=== PATIENT | female | born 1985 | race American Indian/Alaskan Native ===

== ENCOUNTER 2024-01-20 13:09 | Outpatient (CLI) | payer BC ==
[~2024-01-20] VITALS: Ht 160 cm; Wt 78.2 kg
--- NOTE | 2024-01-20 13:20 | NUR ---
1320Pt to LDR 3 with c/o ctx since last remington at 2100. Last remington, ctx every 10min, today ctx every 30min. Patient changes into clean gown. Denies any LOF, reports normal movement. Reports small "spot" of blood this morning. 1325EFM applied and tracing well. VS obtained. Assessment completed. 1330 SVE /-3, BOWI. 1355Dr. Priddle on unit and updated on pt. See physician notification.
[2024-01-20] MEDS ORDERED: SYNTHROID0.075 MG/T PO (13:52)
[2024-01-20] MEDS ORDERED: GLUCOPHAGE500 MG/TAB PO ×2 (13:53→13:54)
[2024-01-20] MEDS ORDERED: PRENATAL TABLET PO (13:54)
[2024-01-20] MEDS ORDERED: NOVOLIN N100 UNIT/1 SQ ×2 (13:55)
[2024-01-20] MEDS ORDERED: NOVOLOG FLEX100 U/ML SQ (13:57)
[2024-01-20 14:15] VITALS: BP 101/63; PULSE 95; TEMP 99.2
[2024-01-20 14:45] VITALS: BP 111/67; PULSE 86
--- NOTE | 2024-01-20 14:50 | NUR ---
1445- SVE unchanged from previous exam. Pt's states they are happy to be going home. Their concern was that the Pt did not sleep well last night due to occational contractions and they wanted to know what to do so she could sleep. This RN discussed bath/shower, Tylenol for discomfort, Benadryl to help with sleep. Pt and verbalize understanding and denies further questions. 1457- EFM and TOCO off. Pt up to change into street clothes. 1515- Dischage paper work given and explained. Pt denies questions. Pt ambulates off unit with spouse.
== END 2024-01-20 15:15 | disposition home or self-care (01) ==
LOC: LDRO 13:09
DX: O26.893 Other specified pregnancy related conditions, third trimester (principal); O26.853 Spotting complicating pregnancy, third trimester; E75.5 Other lipid storage disorders; Z3A.39 39 weeks gestation of pregnancy

== ENCOUNTER 2024-01-21 09:02 | Inpatient (IN) | payer BC ==
[~2024-01-21] VITALS: Ht 160 cm; Wt 78.6 kg
[2024-01-21] VITALS (41 sets, daily range): BP systolic 80–147; BP diastolic 51–90; PULSE 81–118; TEMP 98.5–99.4
[~2024-01-21 09:02] MED LIST: GLUCOPHAGE500 MG/TAB PO; NOVOLIN N100 UNIT/1 SQ; NOVOLOG FLEX100 U/ML SQ; PRENATAL TABLET PO; SYNTHROID0.075 MG/T PO
--- NOTE | 2024-01-21 09:15 | NUR ---
PT WHEELED TO LABOR RM 3 WITH SPOUSE AT SIDE. PT STATES NO LOF OR VB, DOES SAY SHE FEELS THE BABY MOVING. PT CHANGED INTO CLEAN GOWN AND VOIDED. PLACED ON EFM. SVE AT THIS TIME /3 BALLOTABLE. PT HAS HX OF THROMBOCYTOPENIA AND IS REQUESTING AN EPIDURAL. NOTIFIED PHYSICIAN OF PATIENT'S ARRIVAL AND MEDICAL HISTORY. ADMISSION ORDERS OBTAINED. IV STARTED TO LEFT FOREARM, LABS OBTAINED AND SENT TO LAB. NO OTHER CONCERNS AT THIS TIME.
[2024-01-21] MEDS ORDERED: LR 1,000 ML IV SCH (09:45)
[2024-01-21] MEDS ORDERED: Penicillin G Potassium 5,000,000 UNITS in NS 100 ML IV ONE (09:45)
[2024-01-21] MEDS ORDERED: NS 1,000 ML IV SCH (10:00)
[2024-01-21 10:03] LABS: BASO # 0.1 K/mm3 (0.0-0.2); BASO % 0.3 % (0.0-2.0); EOS % 0.1 % (0.0-4.0); GRAN # 16.9 K/mm3 (1.4-6.5); GRAN % 88.4 % (42.2-75.2); HEMOGLOBIN 11.7 g/dl (12.5-16.0); LYMPH # 1.1 K/mm3 (1.2-3.4); LYMPH % 5.7 % (20.0-51.0); MEAN CELL VOLUME 89 fl (80.0-100.0); MEAN CORPUSCULAR HEMOGLOBIN 29 pg (27-31); MEAN CORPUSCULAR HGB CONC 32 g/dl (33.0-37.0); MEAN PLATELET VOLUME 14.1 fl (7.4-10.4); MONO # 0.9 K/mm3 (0.1-0.6); MONO % 4.6 % (1.7-9.3); PLATELET COUNT 129 K/mm3 (130-400); RED BLOOD COUNT 4.09 M/mm3 (4.10-5.30); REDCELL DISTRIBUTION WIDTH-CV 15.6 % (11.5-14.5)
[2024-01-21 10:08] LABS: HEMATOCRIT 36.4 % (37.0-47.0)
[2024-01-21] MEDS ORDERED: diphenhydrAMINE 25 MG CAP PO PRN (10:15)
[2024-01-21] MEDS ORDERED: Naloxone 0.4 MG/ML VIAL IV PRN ×2 (10:15→17:15)
[2024-01-21] MEDS ORDERED: ePHEDrine 50 MG/10 ML VIAL IV PRN (10:15)
[2024-01-21] MEDS ORDERED: diphenhydrAMINE 50 MG/ML 1 ML VIAL IV PRN (10:15)
[2024-01-21] MEDS ORDERED: Ondansetron 4 MG/2 ML VIAL IV PRN ×2 (10:15→17:15)
[2024-01-21] MEDS ORDERED: ROPivacaine PF 0.2% 200 ML IV ONE (10:17)
[2024-01-21] MEDS ORDERED: D5NS 1,000 ML IV SCH (11:15)
[2024-01-21] MEDS ORDERED: LR & Oxytocin 500 ML IV SCH (13:30)
[2024-01-21] MEDS ORDERED: Penicillin G Potassium 2,500,000 UNITS in NS 100 ML IV SCH (14:00)
[2024-01-21] MEDS ORDERED: Chloroprocaine PF 3% (30 MG/ML) 20 ML VIAL ONE (16:06)
[2024-01-21] MEDS ORDERED: NS 20 ML IV ONE (16:12)
[2024-01-21] MEDS ORDERED: Oxytocin 10 UNITS/ML VIAL ONE ×2 (16:12→16:57)
[2024-01-21] MEDS ORDERED: Ondansetron 4 MG/2 ML VIAL ONE (16:12)
[2024-01-21] MEDS ORDERED: Azithromycin 500 MG in NS 250 ML IV ONE (16:15)
[2024-01-21] MEDS ORDERED: Tranexamic Acid 1,000 MG/10 ML VIAL ONE (16:36)
[2024-01-21] MEDS ORDERED: Meperidine 50 MG/ML 1 ML VIAL ONE (16:39)
[2024-01-21] MEDS ORDERED: LR 1,000 ML IV ONE (16:55)
[2024-01-21] MEDS ORDERED: Phenylephrine 10 MG/ML VIAL ONE (17:03)
[2024-01-21] MEDS ORDERED: LR 1,000 ML IV PRN (17:15)
[2024-01-21] MEDS ORDERED: Measles/Mumps/Rubella Virus Vaccine Live w Diluent 0.5 ML VIAL SQ SCH (17:15)
[2024-01-21] MEDS ORDERED: Acetaminophen 500 MG TAB PO SCH (17:15)
[2024-01-21] MEDS ORDERED: Magnes Hydrox (MOM) 80 MG/ML 30 ML CUP PO PRN (17:15)
[2024-01-21] MEDS ORDERED: oxyCODONE 5 MG TAB PO PRN (17:15)
[2024-01-21] MEDS ORDERED: Loratadine 10 MG TAB PO PRN (17:15)
[2024-01-21] MEDS ORDERED: Ketorolac 60 MG/2 ML VIAL IM ONE (17:19)
--- NOTE | 2024-01-21 17:50 | NUR ---
PT STABLE AND MOVING FROM PACU TO OB RM 211. THE PATIENT STATES THAT SHE HAS MINIMAL PAIN 2/10. IN MOM'S ARMS, BED RAILS UP X2 AND FOB FOLLOWING.
[2024-01-21] MEDS ORDERED: traZODone 50 MG TAB PO PRN (21:00)
[2024-01-21] MEDS ORDERED: Ibuprofen 800 MG TAB PO SCH (23:13)
[2024-01-22 03:07] VITALS: BP 97/56; PULSE 77; TEMP 98.7
--- NOTE | 2024-01-22 03:15 | NUR ---
PT UP WITH ASSISTANCE FOR FIRST TIME AMBULATION SINCE . PT TO BATHROOM. PERICARE GIVEN. ICE TO PERINEUM FOR SWELLING. JOEL DISCONTINUED. PT TOLERATED ACTIVITY WELL. WHEN BACK IN BED, STATES PAIN IS WELL CONTROLLED.
[2024-01-22 07:45] VITALS: BP 115/61; PULSE 78; TEMP 98
--- NOTE | 2024-01-22 07:45 | NUR ---
PT BS 56, ORANGE JUICE PROVIDED, PT DRANK IMMEDIATELY.
[2024-01-22] MEDS ORDERED: Sennosides/Docusate 8.6-50 MG TAB PO SCH (08:00)
[2024-01-22] MEDS ORDERED: Prenatal Vitamins/Iron/FA TAB PO SCH (09:00)
--- NOTE | 2024-01-22 12:31 | NUR ---
Data: Patient declined Spiritual Care visit offered during [employer] Supervisor rounds. Assessment: None. Patient declined. Plan of Care: Chaplains will remain available if requested while Patient is admitted to this hospital.
[2024-01-22 17:50] VITALS: BP 118/69; PULSE 79; TEMP 98.1
[2024-01-22 19:00] VITALS: BP 115/58; PULSE 80; TEMP 98.2
[2024-01-23 07:00] VITALS: BP 118/65; PULSE 73; TEMP 98.5
--- NOTE | 2024-01-23 08:00 | NUR ---
PT UP TO SHOWER, DRESSING REMOVED, NEW GOWN AND PANTIES ON. PT COMFORTABLE.
[2024-01-23 16:45] VITALS: BP 122/72; PULSE 76
[2024-01-23 19:00] VITALS: BP 129/74; PULSE 74; TEMP 98.8
[2024-01-23 21:21] LABS: ALBUMIN 2.3 g/dL (3.5-5.0); BILIRUBIN,TOTAL 0.2 mg/dL (0.2-1.2); CREATININE, serum 0.74 mg/dL (0.57-1.11); POTASSIUM 4.2 mEq/L (3.5-4.5); TOTAL PROTEIN 6.2 g/dl (6.2-8.1)
[2024-01-24 08:15] VITALS: BP 116/68; PULSE 74; TEMP 98.5
[2024-01-24] MEDS ORDERED: ROXICODONE 55 MG/TAB PO (08:33)
[2024-01-24] MEDS ORDERED: IBU800 M1 PO (08:33)
--- NOTE | 2024-01-24 14:30 | NUR ---
THIS RN ASSUMES CARE OF PT AT THIS TIME. NURSE TO NURSE REPORT PROVIDED FROM ANGELA KU. PT RESING IN BED, FOB STATES "WE WILL FEED BABY AT 3:30, THEN DC HOME." DENY FURTHER NEEDS AT THIS TIME.
--- NOTE | 2024-01-24 17:35 | NUR ---
ALL DC PAPERWORK REVIEWED AND UNDERSTOOD BY PT AND FOB. DENY FURTHER QUESTIONS OR CONCERNS. ALL FOLLOW UP APPOINTMENTS SCHEDULED AT THIS TIME. INFANT PLACED SECURELY IN CARRIER. STRAPS ASSESSED BY THIS RN. PT AMBULATORY FROM UNIT IN STABLE CONDITION AT THIS TIME.
== END 2024-01-24 17:35 | disposition home or self-care (01) | DRG 787 ==
LOC: LDRO 09:02 → LDR 09:43 → OB 18:30
PROVIDERS: Obstetrics & Gynecology; ADMIT Obstetrics & Gynecology
PROC: 10D00Z1 Extraction of Products of Conception, Low, Open Approach (ICD-10-PCS; principal; 2024-01-21)
DX: O24.424 Gestational diabetes mellitus in childbirth, insulin controlled (principal); O99.12 Other diseases of the blood and blood-forming organs and certain disorders involving the immune mechanism complicating childbirth; Z3A.39 39 weeks gestation of pregnancy; Z37.0 Single live birth; O99.284 Endocrine, nutritional and metabolic diseases complicating childbirth; E03.9 Hypothyroidism, unspecified; O99.02 Anemia complicating childbirth; D69.6 Thrombocytopenia, unspecified; O34.13 Maternal care for benign tumor of corpus uteri, third trimester; D25.9 Leiomyoma of uterus, unspecified; O99.824 Streptococcus B carrier state complicating childbirth
CPT/HCPCS: J0456; J0690; J1885; J2175; J2371; J2401; J2405; J2540; J2590; J2795; J7030; J7042; J7050; J7120